=== PATIENT | female | born 1955 | race Caucasian/White ===

== ENCOUNTER 2017-03-30 06:56 | Day surgery (SDC) | payer BC ==
[2017-03-25 13:50] VITALS: BMI 30.7
[2017-03-30] MEDS ORDERED: LIDOCAINE HCL/PF 2% SDV 5ML VIAL ONE (07:03)
[2017-03-30] MEDS ORDERED: PROPOFOL 20 ML ONE ×2 (07:03)
[2017-03-30 09:25] VITALS: TEMP 98
[2017-03-30 10:18] VITALS: BP 120/72; PULSE 100
--- NOTE | 2017-04-01 15:39 | PATH ---
Surgical Pathology Report Patient Name: AYLIN RAE [facility]. Rec. #: [id number] /Age/Gender: 1955 (Age: 62) / F Account: [id number] Location: [facility]OSCOPY Taken: 03/30/2017 Received: 03/30/2017 Reported: 04/01/2017 Physicians: Jesus Marte M.D. Specimen(s) Received A: BX DUODENUM B: BX ANTRUM Clinical History Preoperative diagnosis: Peptic ulcer disease, rule out colon cancer Postoperative diagnosis: Gastritis, abdominal pain, history of lymphoma Final Diagnosis A. DUODENUM, BIOPSY: DUODENAL MUCOSA WITH NO PATHOLOGIC FINDINGS. B. ANTRUM, BIOPSY: MILD CHRONIC GASTRITIS. IMMUNOSTAIN IS NEGATIVE FOR H. PYLORI ORGANISMS. Electronically Signed Tatiana Braun M.D. Gross Description A. Received in formalin, labeled "duodenum" are 3 hyde, irregular portions of soft tissue ranging from 0.2-0.5 cm. in greatest dimension. The specimens are submitted in toto in one cassette. B. Received in formalin, labeled "antrum" are 2 hyde, irregular portions of soft tissue averaging 0.3 cm. in greatest dimension. The specimens are submitted in toto in one cassette. 03/31/2017 saudi03/31/2017
== END 2017-03-30 10:15 | disposition home or self-care (01) ==
LOC: FASU-ENDO 06:56
PROVIDERS: ATTEND Internal Medicine Gastroenterology
PROC: 0DJD8ZZ Inspection of Lower Intestinal Tract, Via Natural or Artificial Opening Endoscopic (ICD-10-PCS; principal; 2017-03-30 08:54)
DX: Z12.11 Encounter for screening for malignant neoplasm of colon (principal)
CPT/HCPCS: 82962

== ENCOUNTER 2018-04-26 13:37 | Emergency (ER) | payer BC ==
--- NOTE | 2018-04-26 13:44 | PDOC ---
History of Present Illness - General Chief Complaint: Nausea Stated Complaint: NAUSEA History Source: Patient Exam Limitations: No Limitations - History of Present Illness Initial Comments: Pt is a 63 yo F, with PMH of HTN, HLD, DM, lymphoma and breast CA (in remission , last tx 2016), and thyroidectomy (benign nodules), who is presenting with complaints of nausea, vomiting, and loose stool. Pt states 3 days ago, she woke in the AM with profuse loose brown stool, nausea, and NBNB vomiting throughout the day. Over the next 2 days, pt no longer had n/v/d, but did have mild sore throat, diffuse body aches, and has had difficulty tolerating PO food and fluid due to nausea. Pt denies any recent fevers/chills, headache, vision changes, syncope, chest pain, palpitations, SOB, abdominal pain, urinary symptoms, diarrhea/constipation, or leg swelling. PCP: Dr. Magdy Anthony/Onc: Dr. Nolasco Social: Pt denies any cigarette, alcohol, or drug use. Pt denies any recent travel. Pt received a flu shot, but works as a PERMIT COORDINATOR with sick contacts. Surgical: stem cell transplant for lymphoma, spinal fusion, thyroidectomy, mastectomy b/l Family: no relevant history. 04/26/18 19:03 Past History - Travel Traveled outside of the country in the last 30 days: No Close contact w/someone who was outside of country & ill: No - Past Medical History Allergies/Adverse Reactions: Allergies Allergy/AdvReac Type Severity Reaction Status Date / Time adhesive Allergy Severe Hives Verified 06/27/13 13:47 ceftriaxone Allergy Severe FEVER, RASH Verified 03/25/17 13:51 tramadol HCl [From Ultram] Allergy Severe VERTIGO & Verified 07/13/14 20:33 PROJECTILE VOMITING povidone-iodine Allergy Intermediate SKIN Verified 06/27/13 13:47 [From Betadine] INFLAMATION soap [From Betadine] Allergy Intermediate SKIN Verified 06/27/13 13:47 INFLAMATION ticarcillin disodium Allergy Intermediate WEALS Verified 07/13/14 20:33 [From Ticar] diazepam [From Valium] AdvReac Severe VISUAL Verified 06/27/13 13:47 HALLUCINATIONS Home Medications: Ambulatory Orders Losartan Potassium 100 mg PO DAILY 06/27/13 Atorvastatin Ca [Lipitor -] 20 mg PO HS 07/13/14 Diphenoxylate HCl/Atrop Sulf [Lomotil Tablet] 1 each PO Q4H PRN 07/13/14 Methocarbamol [Robaxin -] 750 mg PO HS PRN 07/13/14 Oxycodone HCl/Acetaminophen [Percocet 5/325 -] 1 tab PO Q6H PRN 07/13/14 Prochlorperazine Maleate [Compazine] 10 mg PO Q6H PRN 07/13/14 Anastrozole [Arimidex -] 1 mg PO DAILY 03/25/17 Cholecalciferol (Vitamin D3) [Vitamin D] 2,000 unit PO DAILY 03/25/17 Docusate Sodium [Colace] 100 mg PO BID 03/25/17 Insulin Degludec [Tresiba Flextouch U-100] 48 unit SQ HS 03/25/17 Insulin Lispro [Humalog] 10 unit SQ AC 03/25/17 Levothyroxine [Synthroid -] 100 mcg PO DAILY 03/25/17 Magnesium 500 mg PO BID 03/25/17 Omeprazole Magnesium [Prilosec Otc] 40 mg PO DAILY 03/25/17 Potassium Chloride 10 meq PO BID 03/25/17 Pyridoxine HCl [Vitamin B6] 100 mg PO DAILY 03/25/17 Nitrofurantoin Macrocrystal [Macrodantin] 100 mg PO BID 5 Days #10 capsule 04/26 Anemia: No Asthma: No Cancer: Yes (LOGAN BREAST. CHEMOTHERAPY 06/30/14) Cardiac Disorders: No CVA: No COPD: No CHF: No Dementia: No Diabetes: Yes (DX 1994) GI Disorders: Yes (GERD) Disorders: No HTN: Yes Hypercholesterolemia: No (ON PREVENTATIVE MEDS) Liver Disease: No (? LYMPHOMA SPOT NOW GONE) Seizures: No Thyroid Disease: Yes (PARTIAL THYROIDECTOMY AND NODULES) - Surgical History Abdominal Surgery: Yes Appendectomy: Yes (OPEN-2009) Cardiac Surgery: No Cholecystectomy: No Lung Surgery: No Neurologic Surgery: No Orthopedic Surgery: Yes (FUSION L1-S1- 2008, LEFT KNEE ARTHROSCOPY-1989) - Suicide/Smoking/Psychosocial Hx Smoking History: Never smoked Have you smoked in the past 12 months: No Hx Alcohol Use: Yes (RARE - WINE) Drug/Substance Use Hx: No Substance Use Type: Alcohol Hx Substance Use Treatment: No Review of Systems - Review of Systems Able to Perform ROS?: Yes Is the patient limited [place]raltarian proficient: No Constitutional: Yes: Loss of Appetite, Malaise, Weight Stable. No: Chills, Diaphoresis, Fever, Night Sweats, Weakness HEENTM: No: Blurred Vision, Recent change in vision, Double Vision, Nose Congestion, Throat Pain, Throat Swelling, Difficulty Swallowing Respiratory: No: Cough, Shortness of Breath Cardiac (ROS): Yes: Edema (b/l LE, chronic). No: Chest Pain, Lightheadedness, Palpitations, Syncope ABD/GI: Yes: Diarrhea, Nausea, Poor Appetite, Poor Fluid Intake, Vomiting. No: Abdominal Distended, Abd. Pain w/ defecation, Constipated, Rectal Bleeding, Indigestion, Abdominal cramping : No: Burning, Dysuria, Frequency, Hematuria, Pain, Urgency Musculoskeletal: No: Back Pain, Joint Pain, Muscle Pain, Muscle Weakness Integumentary: No: Rash Neurological: No: Headache, Numbness, Weakness, Unsteady Gait, Dizziness Psychiatric: No: Sleep Pattern Change, Emotional Problems, Change in Appetite Endocrine: No: Increased Urine, Change in Weight Hematologic/Lymphatic: No: Anemia, Blood Clots, Easy Bleeding, Easy Bruising All Other Systems: Reviewed and Negative *Physical Exam - Vital Signs 04/26/18 18:52 Vital Signs Temp Pulse Resp BP Pulse Ox 99.9 F H 113 H 20 120/70 99 04/26/18 13:38 04/26/18 13:38 04/26/18 13:38 04/26/18 13:38 04/26/18 13:38 - Physical Exam Comments: 04/26/18 18:52 BP stable, mildly tachycardic, pt afebrile. Pt appears uncomfortable, obese body habitus. PE showed pt alert and oriented. director digital marketing generally intact, muscular strength and sensation intact. Eyes PERRLA, EOMI. Oropharynx without erythema or exudates, no LAD b/l. Dry oral mucosa, decreased skin turgor. No nasal congestion, hearing intact. Clear heart sounds, S1/S2, no JVD, or heart murmur. Mild b/l pitting, pedal edema to ankles (pt states chronic). Clear lung sounds, no respiratory distress, wheezes, crackles, or accessory muscle use. R subclavian port intact, no erythema or drainage. No abdominal or CVA tenderness to palpation, no rebound, no guarding. Abdomen soft, non-distended, and with normoactive bowel sounds. Skin without jaundice or rash. ED Treatment Course - LABORATORY CBC & Chemistry Diagram: 04/26/18 15:39 04/26/18 15:39 Medical Decision Making - Medical Decision Making Pt was seen at bedside, also will be seen by attending Dr. Eugene. Pt presenting with complaints of nausea, vomiting, and loose stool. Pt states 3 days ago, she woke in the AM with profuse loose brown stool, nausea, and NBNB vomiting throughout the day. Over the next 2 days, pt no longer had n/v/d, but did have mild sore throat, diffuse body aches, and has had difficulty tolerating PO food and fluid due to nausea. Pt denies any recent fevers/chills, headache, vision changes, syncope, chest pain, palpitations, SOB, abdominal pain , urinary symptoms, diarrhea/constipation, or leg swelling. BP stable, mildly tachycardic, pt afebrile. Pt appears uncomfortable, obese body habitus. PE showed pt alert and oriented. director digital marketing generally intact, muscular strength and sensation intact. Eyes PERRLA, EOMI. Oropharynx without erythema or exudates, no LAD b/l. Dry oral mucosa, decreased skin turgor. No nasal congestion, hearing intact. Clear heart sounds, S1/S2, no JVD, or heart murmur. Mild b/l pitting, pedal edema to ankles (pt states chronic). Clear lung sounds, no respiratory distress, wheezes, crackles, or accessory muscle use. No abdominal or CVA tenderness to palpation, no rebound, no guarding. Abdomen soft , non-distended, and with normoactive bowel sounds. Skin without jaundice or rash. Likely viral syndrome/influenza vs gastroenteritis. No abdominal tenderness ( less likely appendicitis vs colitis/diverticulitis), pt had a recent colonoscopy with no findings. Ordered work-up including CBC, CMP, UA, urine culture, rapid influenza. Provided 1 g ofirmev, 4 mg IV zofran, and 1 L IV NS for improvement of dehydration. Will continue to reassess pt and monitor for symptomatic improvement. Pt was very difficult for IV access, pt prefers us to access R subclavian port. Will access port for IVF and labs. 04/26/18 15:28 CBC generally WNL, hemoglobin 10.6 (last was taken in 2014, no bleeding source) CMP: Na 133, K 3.3 -- likely 2/2 n/v/d UA: trace leuk esterase, +RBC, +WBC -- will treat with Macrobid, sent to pt pharmacy. Pending influenza swab, as pt is a good candidate for Tamiflu Pt states she is feeling much better after IVFs and tylenol. Pt has been able to ambulate to the bathroom. Tachycardia and BP improved after fluids. Pt can be discharged to home with follow-up. Pt advised to follow-up with PCP in 1-2 days. Strict return precautions provided with pt understanding. 04/26/18 16:59 Influenza negative, will not send tamiflu. 04/26/18 18:50 *DC/Admit/Observation/Transfer Diagnosis at time of Disposition: Viral syndrome Urinary tract infection Qualifiers: Urinary tract infection type: site unspecified Hematuria presence: with hematuria Qualified Code(s): N39.0 - Urinary tract infection, site not specified - Discharge Dispostion Disposition: HOME Condition at time of disposition: Improved Decision to Admit order: No - Prescriptions Prescriptions: Nitrofurantoin Macrocrystal [Macrodantin] 100 mg PO BID 5 Days #10 capsule - Referrals Referrals: Bonny Curran MD [Non Staff, Medical] - - Patient Instructions Printed Discharge Instructions: DI for Urinary Tract Infection (UTI), DI for Viral Syndrome Additional Instructions: You were seen in the ER today for nausea, vomiting, and diarrhea. The results of your labs and imaging today showed a mild urinary tract infection. We will call you if your influenza test is positive. Please follow-up with your primary care doctor within 1-2 days to discuss your visit and make sure your symptoms have improved. Please return to the ER if you have any worsening pain, development of fevers or chills that does not improve with food or fluid, loss of consciousness, inability to tolerate food or fluids, or any other concerns. I have sent antibiotics to your pharmacy for your urine infection. Please take this medicine as prescribed. - Post Discharge Activity
[2018-04-26 13:57] VITALS: BP 120/70; PULSE 113; TEMP 99.9; BMI 32.5
[2018-04-26] MEDS ORDERED: ONDANSETRON 4 MG/2 ML VIAL IVPUSH ONE (14:02)
[2018-04-26] MEDS ORDERED: SODIUM CHLORIDE 1,000 ML IV STA (14:02)
[2018-04-26] MEDS ORDERED: ACETAMINOPHEN 1000 MG/100 ML VIAL (NON FORMULARY) IVPB ONE (14:02)
[2018-04-26] MEDS ORDERED: ACETAMINOPHEN INJECTION 100 ML IVPB ONE (15:06)
[2018-04-26] MEDS ORDERED: ONDANSETRON 4 MG/2 ML VIAL ONE (15:06)
--- NOTE | 2018-04-26 15:07 | PDOC ---
Attending Attestation - Resident Resident Name: Jennifer Castrejon - ED Attending Attestation I have performed the following: I have examined & evaluated the patient, The case was reviewed & discussed with the resident, I agree w/resident's findings & plan, Exceptions are as noted
[2018-04-26 16:03] LABS: BASO % 0.1 % (0-2.0); EOS % 0.3 % (0-4.5); HEMATOCRIT 32.9 % (32.4-45.2); HEMOGLOBIN 10.6 GM/dl (10.7-15.3); LYMPH % 7.4 % (8-40); MCH 28.7 pg (25.7-33.7); MCHC 32.2 g/dl (32.0-36.0); MEAN CELL VOLUME 89.1 fl (80-96); MEAN PLT VOLUME 8.5 fl (7.5-11.1); MONO % 9.3 % (3.8-10.2); NEUT % 82.9 % (42.8-82.8); PLATELET COUNT 126 K/MM3 (134-434); RBC 3.69 M/mm3 (3.60-5.2); RDW 15.9 % (11.6-15.6); WHITE BLOOD COUNT 8.5 K/mm3 (4.0-10.8)
[2018-04-26 16:16] LABS: ALK PHOS 68 U/L (45-117); ANION GAP 8 MMOL/L (8-16); BILIRUBIN,TOTAL 0.7 mg/dl (0.2-1); BLOOD UREA NITROGEN 17 mg/dl (7-18); CALCIUM 7.8 mg/dl (8.5-10); CHLORIDE 101 mmol/L (98-107); CO2 24 mmol/L (21-32); CREATININE 0.7 mg/dl (0.55-1.3); GLUCOSE,RANDOM 114 mg/dl (74-106); POTASSIUM 3.3 mmol/L (3.5-5.1); SGOT/AST 16 U/L (15-37); SGPT/ALT 15 U/L (13-61); SODIUM 133 mmol/L (136-145); TOT PROT 5.3 g/dl (6.4-8.2)
[2018-04-26 16:26] LABS: PH,URINE 5.5 (4.5-8); URINE APPEARANCE SL CLOUDY; URINE BILIRUBIN 1+ (NEGATIVE); URINE COLOR YELLOW; URINE GLUCOSE (UA) NEGATIVE (NEGATIVE); URINE KETONE NEGATIVE (NEGATIVE); URINE NITRITE NEGATIVE (NEGATIVE); URINE PROTEIN 2+ (NEGATIVE); URINE UROBILINOGEN 0.2 (0.2-1.0)
[2018-04-26 16:27] LABS: URINE LEUK ESTERASE TRACE (NEGATIVE)
[2018-04-26 16:39] LABS: EPI CELLS 1+ /HPF; URINE BACTERIA 1+ /hpf (NEGATIVE)
== END 2018-04-26 17:43 | disposition home or self-care (01) ==
LOC: FER 13:37
PROC: 3E033NZ Introduction of Analgesics, Hypnotics, Sedatives into Peripheral Vein, Percutaneous Approach (ICD-10-PCS; principal; 2018-04-26)
PROC: 3E033GC Introduction of Other Therapeutic Substance into Peripheral Vein, Percutaneous Approach (ICD-10-PCS; 2018-04-26)
PROC: 3E0337Z Introduction of Electrolytic and Water Balance Substance into Peripheral Vein, Percutaneous Approach (ICD-10-PCS; 2018-04-26)
DX: B34.9 Viral infection, unspecified (principal); I10 Essential (primary) hypertension; E11.9 Type 2 diabetes mellitus without complications; K21.9 Gastro-esophageal reflux disease without esophagitis; E07.9 Disorder of thyroid, unspecified
CPT/HCPCS: 36415; 80053; 81003; 81015; 85025; 87086; 87186; 87804; 99282-25; J0131; J7030

== ENCOUNTER 2018-04-29 22:57 | Inpatient (IN) | payer BC ==
--- NOTE | 2018-04-29 23:07 | PDOC ---
History of Present Illness - History of Present Illness Initial Comments: The patient is a 63 year old female, with a significant PMH of DM, HTN, hypothyroid, GERD, thyroidectomy (benign nodules), lymphoma, and breast cancer ( in remission, last treatment was in 2017), who presents to the emergency department today complaining of unresolved flu symptoms for 4 days. Patient was seen in the ED 4 days ago for a persistent cough, and was treated for dehydration. She notes that the cough has gotten progressively worse, prompting her to go to [facility] 2 days ago. Patient reports that she was tested positive for the flu, but was not given anything because 2 days had already passed. Patient reports a fever, measured at a 102.2 max one hour prior to arrival. Patient notes she took Tylenol without relief for her fever. She also complains of SOB and left rib pain. The patient denies chest pain, headache and dizziness. Denies nausea, vomit, diarrhea and constipation. Denies dysuria, frequency, urgency and hematuria. PAST MEDICAL HISTORY: DM, HTN, hypothyroid, GERD, lymphoma, and breast cancer ( in remission, last treatment was in 2016) PAST SURGICAL HISTORY: Appendectomy, stem cell transplant for lymphoma, bilateral mastectomy, thyroidectomy, spinal fusion, and left knee arthroscopy FAMILY HISTORY: no pertinent history SOCIAL HISTORY: Pt lives with family and is employed. MEDICATIONS: reviewed ALLERGIES: Adhesive, Ceftriaxone, Tramadol HCl, Povidone-iodine, soap, Ticarcillin disodium, and DIazepam. PCP: Dr. Bonny Curran Heme/Oncologist: Dr. Nolasco Adult ROS General: +102.2 max fever. No chills, no weakness, no weight loss HEENT: No change in vision. No sore throat,. No ear pain CardioVascular: +SOB. No chest pain. Respiratory: +Persistent cough. No wheezing. Gastrointestinal: no nausea, vomiting, diarrhea or constipation, No rectal bleeding Genitourinary: No dysuria, hematuria, or frequency Musculoskeletal: +Left rib pain. No joint or muscle swelling Neurologic: No headache, vertigo, dizziness or loss of consciousness Psychiatric: nor depression Skin: No rashes or easy bruising Endocrine: no increased thirst or abnormal weight change Allergic: no skin or latex allergy All other systems reviewed and normal Adult Exam: General: +Chronically ill appearance. No acute distress HEENT: Throat: Normal, tonsils normal, no erythema or exudate Neck: Supple, no meningeal signs, no lymphadenopathy Eyes:Pupils equal reactive and round, extraocular motion intact Chest: Nontender to palpation Cardiac: +Mild tachycardia. S1-S2 normal, regular rhythm, no murmurs rubs or gallops Respiratory: +Decreased breath sounds at bilateral bases with some rhonchi at the left base. Abdomen: Soft, nondistended, normal bowel sounds, nontender to palpation diffusely Extremities: Warm, dry, no cyanosis, clubbing, or edema Skin: No rashes Neuro: Alert and oriented x3, nonfocal exam, grossly intact, normal gait Psych: Normal mood and affect 04/29/18 23:56 <Kristie Fuentes - Last Filed: 04/29/18 23:59> - General History Source: Patient Exam Limitations: No Limitations <Any Lai I - Last Filed: 04/30/18 02:12> - General Chief Complaint: Respiratory Stated Complaint: FEVER/COUGH/FLU Time Seen by Provider: 04/29/18 23:07 Past History <Kristie Fuentes - Last Filed: 04/29/18 23:59> - Past Medical History Anemia: No Asthma: No Cancer: Yes (LOGAN BREAST. CHEMOTHERAPY 06/30/14) Cardiac Disorders: No CVA: No COPD: No CHF: No Dementia: No Diabetes: Yes (DX 1994) GI Disorders: Yes (GERD) Disorders: No HTN: Yes Hypercholesterolemia: No (ON PREVENTATIVE MEDS) Liver Disease: No (? LYMPHOMA SPOT NOW GONE) Seizures: No Thyroid Disease: Yes (PARTIAL THYROIDECTOMY AND NODULES) - Surgical History Abdominal Surgery: Yes Appendectomy: Yes (OPEN-2009) Cardiac Surgery: No Cholecystectomy: No Lung Surgery: No Neurologic Surgery: No Orthopedic Surgery: Yes (FUSION L1-S1- 2008, LEFT KNEE ARTHROSCOPY-1989) - Suicide/Smoking/Psychosocial Hx Smoking History: Never smoked Have you smoked in the past 12 months: No Hx Alcohol Use: Yes (RARE - WINE) Drug/Substance Use Hx: No Substance Use Type: Alcohol Hx Substance Use Treatment: No <Any Lai I - Last Filed: 04/30/18 02:12> - Past Medical History Allergies/Adverse Reactions: Allergies Allergy/AdvReac Type Severity Reaction Status Date / Time adhesive Allergy Severe Hives Verified 06/27/13 13:47 ceftriaxone Allergy Severe FEVER, RASH Verified 03/25/17 13:51 tramadol HCl [From Ultram] Allergy Severe VERTIGO & Verified 07/13/14 20:33 PROJECTILE VOMITING povidone-iodine Allergy Intermediate SKIN Verified 06/27/13 13:47 [From Betadine] INFLAMATION soap [From Betadine] Allergy Intermediate SKIN Verified 06/27/13 13:47 INFLAMATION ticarcillin disodium Allergy Intermediate WEALS Verified 07/13/14 20:33 [From Ticar] diazepam [From Valium] AdvReac Severe VISUAL Verified 06/27/13 13:47 HALLUCINATIONS Home Medications: Ambulatory Orders Losartan Potassium 100 mg PO DAILY 06/27/13 Atorvastatin Ca [Lipitor -] 20 mg PO HS 07/13/14 Diphenoxylate HCl/Atrop Sulf [Lomotil Tablet] 1 each PO Q4H PRN 07/13/14 Methocarbamol [Robaxin -] 750 mg PO HS PRN 07/13/14 Oxycodone HCl/Acetaminophen [Percocet 5/325 -] 1 tab PO Q6H PRN 07/13/14 Prochlorperazine Maleate [Compazine] 10 mg PO Q6H PRN 07/13/14 Anastrozole [Arimidex -] 1 mg PO DAILY 03/25/17 Cholecalciferol (Vitamin D3) [Vitamin D] 2,000 unit PO DAILY 03/25/17 Docusate Sodium [Colace] 100 mg PO BID 03/25/17 Insulin Degludec [Tresiba Flextouch U-100] 48 unit SQ HS 03/25/17 Insulin Lispro [Humalog] 0 unit SQ ASDIR 03/25/17 Levothyroxine [Synthroid -] 100 mcg PO DAILY 03/25/17 Magnesium 500 mg PO BID 03/25/17 Omeprazole Magnesium [Prilosec Otc] 40 mg PO DAILY 03/25/17 Potassium Chloride 10 meq PO BID 03/25/17 Pyridoxine HCl [Vitamin B6] 100 mg PO DAILY 03/25/17 *Physical Exam - Vital Signs Last Vital Signs Temp Pulse Resp BP Pulse Ox 100.5 F H 111 H 16 123/73 93 L 04/29/18 23:00 04/29/18 23:00 04/29/18 23:00 04/29/18 23:00 04/29/18 23:00 <Kristie Fuentes - Last Filed: 04/29/18 23:59> - Vital Signs Last Vital Signs Temp Pulse Resp BP Pulse Ox 100.5 F H 111 H 16 123/73 93 L 04/29/18 23:00 04/29/18 23:00 04/29/18 23:00 04/29/18 23:00 04/29/18 23:00 <Any Lai I - Last Filed: 04/30/18 02:12> Moderate Sedation - Procedure Monitoring Vital Signs: Procedure Monitoring Vital Signs Temperature 100.5 F H 04/29/18 23:00 Pulse Rate 111 H 04/29/18 23:00 Respiratory Rate 16 04/29/18 23:00 Blood Pressure 123/73 04/29/18 23:00 O2 Sat by Pulse Oximetry (%) 93 L 04/29/18 23:00 <Kristie Fuentes - Last Filed: 04/29/18 23:59> - Procedure Monitoring Vital Signs: Procedure Monitoring Vital Signs Temperature 100.5 F H 04/29/18 23:00 Pulse Rate 111 H 04/29/18 23:00 Respiratory Rate 16 04/29/18 23:00 Blood Pressure 123/73 04/29/18 23:00 O2 Sat by Pulse Oximetry (%) 93 L 04/29/18 23:00 <Any Lai I - Last Filed: 04/30/18 02:12> Heart Score/ECG Review - ECG Intrepretation Rhythm: Regular Rhythm Comment:: Normal sinus rhythm. Right bundle branch block. Abnormal ECG. 04/29/18 23:59 <Kristie Fuentes - Last Filed: 04/29/18 23:59> ED Treatment Course - LABORATORY CBC & Chemistry Diagram: 04/30/18 00:00 04/30/18 00:00 <Any Lai I - Last Filed: 04/30/18 02:12> *DC/Admit/Observation/Transfer - Attestations Scribe Attestion: Documentation prepared by OVI Martin, acting as medical device sales for Any Lai MD. 04/29/18 23:57 <Kristie Fuentes - Last Filed: 04/29/18 23:59> - Discharge Dispostion Decision to Admit order: Yes <Any Lai I - Last Filed: 04/30/18 02:12> Diagnosis at time of Disposition: Pneumonia Qualifiers: Pneumonia type: due to unspecified organism Lung location: lower lobe of lung - Discharge Dispostion Condition at time of disposition: Stable - Referrals Referrals: Bonny Curran MD [Primary Care Provider] - - Patient Instructions - Post Discharge Activity
[2018-04-29] MEDS ORDERED: SODIUM CHLORIDE 1,000 ML IV ONE (23:19)
[2018-04-30 00:54] LABS: BASO % 0.1 % (0-2.0); EOS % 0.1 % (0-4.5); HEMATOCRIT 30.3 % (32.4-45.2); HEMOGLOBIN 10.8 GM/dL (10.7-15.3); MCH 31.1 pg (25.7-33.7); MCHC 35.6 g/dl (32.0-36.0); MEAN CELL VOLUME 87.5 fl (80-96); MEAN PLT VOLUME 8.6 fl (7.5-11.1); MONO % 12.9 % (3.8-10.2); NEUT % 77.9 % (42.8-82.8); PLATELET COUNT 106 K/MM3 (134-434); RBC 3.46 M/mm3 (3.60-5.2); RDW 16.4 % (11.6-15.6); WHITE BLOOD COUNT 7.1 K/mm3 (4.0-10.0)
[2018-04-30 01:25] LABS: INR 1.28 (0.83-1.09); PROTHROMBIN TIME (PATIENT) 15.2 SEC (9.7-13.0)
[2018-04-30 01:27] LABS: ACTIVATED PTT 36.7 SECONDS (25.2-36.5)
[2018-04-30 01:30] LABS: ALBUMIN 2.8 g/dl (3.4-5.0); ALK PHOS 73 U/L (45-117); ANION GAP 7 MMOL/L (8-16); BILIRUBIN,TOTAL 0.5 mg/dL (0.2-1); BLOOD UREA NITROGEN 13 mg/dL (7-18); CALCIUM 7.9 mg/dL (8.5-10.1); CHLORIDE 98 mmol/L (98-107); CO2 28 mmol/L (21-32); CREATININE 0.9 mg/dL (0.55-1.3); GLUCOSE,RANDOM 130 mg/dL (74-106); POTASSIUM 3.1 mmol/L (3.5-5.1); SGOT/AST 21 U/L (15-37); SGPT/ALT 18 U/L (13-61); SODIUM 133 mmol/L (136-145); TOT PROT 5.9 g/dl (6.4-8.2)
[2018-04-30 01:44] LABS: VENOUS PC02 38.8 mmHg (38-52); VENOUS PH 7.48 (7.32-7.42)
[2018-04-30] MEDS ORDERED: ONDANSETRON 4 MG/2 ML VIAL ONE (02:02)
[2018-04-30] MEDS ORDERED: METOCLOPRAMIDE HCL INJECTION 10 MG/2 ML VIAL IVPUSH ONE (02:15)
[2018-04-30] MEDS ORDERED: PROCHLORPERAZINE INJECTION 10 MG/2 ML VIAL IVPB ONE (02:16)
[2018-04-30] MEDS ORDERED: PROCHLORPERAZINE INJECTION 10 MG/2 ML VIAL ONE (02:18)
[2018-04-30] MEDS ORDERED: POTASSIUM CHLORIDE TABS 20 MEQ TABLET.ER (FP) PO ONE ×3 (02:26→08:45)
[2018-04-30] MEDS ORDERED: OSELTAMIVIR PHOSPHATE 75 MG CAPSULE PO ONE (02:51)
[2018-04-30] MEDS ORDERED: ALBUTEROL SO4 2.5/IPRATROPIUM 0.5 INH SOL 3 ML VIAL.NEB. NEB PRN (02:54)
[2018-04-30 02:58] LABS: URINE APPEARANCE CLEAR; URINE BILIRUBIN NEGATIVE (<2.0 mg/dL); URINE COLOR LTYELLOW; URINE GLUCOSE (UA) NEGATIVE (NEGATIVE); URINE KETONE NEGATIVE (NEGATIVE); URINE LEUK ESTERASE NEGATIVE (NEGATIVE); URINE NITRITE NEGATIVE (NEGATIVE); URINE PROTEIN NEGATIVE (NEGATIVE); URINE UROBILINOGEN NEGATIVE mg/dL (0.2-1.0)
[2018-04-30 03:12] LABS: URINE BACTERIA MANY /hpf (NONE SEEN)
[2018-04-30 04:27] VITALS: BMI 31.9
[2018-04-30] MEDS ORDERED: LEVOTHYROXINE NA 100 MCG TABLET (FP) PO SCH (07:00)
--- NOTE | 2018-04-30 08:13 | HP ---
CHIEF COMPLAINT: Fever, cough PCP: Dr. Sheryl Curran HISTORY OF PRESENT ILLNESS: 63 year-old female with a PMH significant for HTN, HLD, IDDM, lymphoma in remission, breast cancer, hypothyroidism, and GERD. 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 About 5 days ago patient experienced nausea, vomiting, and diarrhea x 24 hours. Two days later she developed a cough. She was seen at [place] ED and was flu swab negative. The cough worsened and patient went to an urgent care 2 days later and tested flu positive. She was not started on any medications. Patient re-presented to the [place] ED yesterday with fever recorded at home of 102 and a persistent, productive cough. ER course was notable for: (1) T100.5, p111 (2) Flu swab negative (3) CXR: no acute process Recent Travel: No PAST MEDICAL HISTORY: Hypertension Hyperlipidemia IDDM Lymphoma s/p stem cell transplant 2016 Breast cancer 2015 Hypothyroidism GERD PAST SURGICAL HISTORY: Stem call transplant Spinal fusion Thyroidectomy Bilateral mastectomy Appendectomy Social History: Smoking: no Alcohol: rare Drugs: no Family History: Allergies adhesive Allergy (Severe, Verified 06/27/13 13:47) Hives ceftriaxone Allergy (Severe, Verified 03/25/17 13:51) FEVER, RASH tramadol HCl [From Ultram] Allergy (Severe, Verified 07/13/14 20:33) VERTIGO & PROJECTILE VOMITING povidone-iodine [From Betadine] Allergy (Intermediate, Verified 06/27/13 13:47) SKIN INFLAMATION soap [From Betadine] Allergy (Intermediate, Verified 06/27/13 13:47) SKIN INFLAMATION ticarcillin disodium [From Ticar] Allergy (Intermediate, Verified 07/13/14 20:33 ) WEALS diazepam [From Valium] Adverse Reaction (Severe, Verified 06/27/13 13:47) VISUAL HALLUCINATIONS HOME MEDICATIONS: Home Medications Medication Instructions Recorded Losartan Potassium 100 mg PO DAILY 06/27/13 Atorvastatin Ca [Lipitor -] 20 mg PO HS 07/13/14 Diphenoxylate HCl/Atrop Sulf 1 each PO Q4H PRN 07/13/14 [Lomotil Tablet] Methocarbamol [Robaxin -] 750 mg PO HS PRN 07/13/14 Oxycodone HCl/Acetaminophen 1 tab PO Q6H PRN 07/13/14 [Percocet 5/325 -] Prochlorperazine Maleate 10 mg PO Q6H PRN 07/13/14 [Compazine] Anastrozole [Arimidex -] 1 mg PO DAILY 03/25/17 Cholecalciferol (Vitamin D3) 2,000 unit PO DAILY 03/25/17 [Vitamin D] Docusate Sodium [Colace] 100 mg PO BID 03/25/17 Insulin Degludec [Tresiba 48 unit SQ HS 03/25/17 Flextouch U-100] Insulin Lispro [Humalog] 0 unit SQ ASDIR 03/25/17 Levothyroxine [Synthroid -] 100 mcg PO DAILY 03/25/17 Magnesium 500 mg PO BID 03/25/17 Omeprazole Magnesium [Prilosec Otc] 40 mg PO DAILY 03/25/17 Potassium Chloride 10 meq PO BID 03/25/17 Pyridoxine HCl [Vitamin B6] 100 mg PO DAILY 03/25/17 REVIEW OF SYSTEMS CONSTITUTIONAL: Absent: fever, chills, diaphoresis, generalized weakness, malaise, loss of appetite, weight change HEENT: Absent: rhinorrhea, nasal congestion, throat pain, throat swelling, difficulty swallowing, mouth swelling, ear pain, eye pain, visual changes CARDIOVASCULAR: Absent: chest pain, syncope, palpitations, irregular heart rate, lightheadedness , peripheral edema RESPIRATORY: +cough, fever Absent: cough, shortness of breath, dyspnea with exertion, orthopnea, wheezing, stridor, hemoptysis GASTROINTESTINAL: +diarrhea Absent: abdominal pain, abdominal distension, nausea, vomiting, diarrhea, constipation, melena, hematochezia GENITOURINARY: Absent: dysuria, frequency, urgency, hesitancy, hematuria, flank pain, genital pain MUSCULOSKELETAL: Absent: myalgia, arthralgia, joint swelling, back pain, neck pain SKIN: Absent: rash, itching, pallor HEMATOLOGIC/IMMUNOLOGIC: Absent: easy bleeding, easy bruising, lymphadenopathy, frequent infections ENDOCRINE: Absent: unexplained weight gain, unexplained weight loss, heat intolerance, cold intolerance NEUROLOGIC: Absent: headache, focal weakness or paresthesias, dizziness, unsteady gait, seizure, mental status changes, bladder or bowel incontinence PSYCHIATRIC: Absent: anxiety, depression, suicidal or homicidal ideation, hallucinations. PHYSICAL EXAMINATION Vital Signs - 24 hr 04/29/18 04/30/18 04/30/18 23:00 00:15 01:57 Temperature 100.5 F H 99.3 F Pulse Rate 111 H 95 H Pulse Rate [ 95 H 98 H Apical] Respiratory 16 18 20 Rate Blood Pressure 123/73 Blood Pressure 114/71 115/66 [Left Arm] O2 Sat by Pulse 93 L 97 94 L Oximetry (%) 04/30/18 04/30/18 04/30/18 02:30 04:15 07:13 Temperature 99.9 F H 100.4 F H Pulse Rate 93 H 109 H Pulse Rate [ 95 H Apical] Respiratory 16 19 19 Rate Blood Pressure 123/54 L 137/65 Blood Pressure [Left Arm] O2 Sat by Pulse 98 97 99 Oximetry (%) GENERAL: Awake, alert, and fully oriented; right upper chest port HEAD: Normal with no signs of trauma. EYES: Pupils equal, round and reactive to light, extraocular movements intact, sclera anicteric, conjunctiva clear. No lid lag. EARS, NOSE, THROAT: Ears normal, nares patent, oropharynx clear without exudates. Moist mucous membranes. LUNGS: Poor air movement, diffuse rhonchi, expiratory wheezing. Mildly dyspneic with speaking. HEART: Regular rate and rhythm, S1 and S2 ABDOMEN: Soft, nontender, not distended UPPER EXTREMITIES: 2+ pulses, warm, well-perfused. No cyanosis. No clubbing. No peripheral edema. LOWER EXTREMITIES: 2+ pulses, warm, well-perfused. No calf tenderness. No peripheral edema. NEUROLOGICAL: Cranial nerves II-XII intact. Normal speech. Laboratory Results - last 24 hr 04/30/18 04/30/18 04/30/18 00:00 00:00 00:00 WBC 7.1 RBC 3.46 L Hgb 10.8 Hct 30.3 L MCV 87.5 MCH 31.1 MCHC 35.6 RDW 16.4 H Plt Count 106 L MPV 8.6 Absolute Neuts (auto) 5.6 Neutrophils % 77.9 Lymphocytes % 9.0 Monocytes % 12.9 H Eosinophils % 0.1 Basophils % 0.1 Nucleated RBC % 0 PT with INR 15.20 H INR 1.28 H PTT (Actin FS) 36.7 H VBG pH 7.48 H POC VBG pCO2 38.8 POC VBG pO2 35.0 Mixed VBG HCO3 28.3 H Sodium Potassium Chloride Carbon Dioxide Anion Gap BUN Creatinine Creat Clearance w eGFR Random Glucose Lactic Acid Calcium Total Bilirubin AST ALT Alkaline Phosphatase Total Protein Albumin Urine Color Urine Appearance Urine pH Ur Specific [place] Urine Protein Urine Glucose (UA) Urine Ketones Urine Blood Urine Nitrite Urine Bilirubin Urine Urobilinogen Ur Leukocyte Esterase Urine WBC (Auto) Urine RBC (Auto) Urine Bacteria 04/30/18 04/30/18 04/30/18 00:00 00:00 01:00 WBC RBC Hgb Hct MCV MCH MCHC RDW Plt Count MPV Absolute Neuts (auto) Neutrophils % Lymphocytes % Monocytes % Eosinophils % Basophils % Nucleated RBC % PT with INR INR PTT (Actin FS) VBG pH POC VBG pCO2 POC VBG pO2 Mixed VBG HCO3 Sodium 133 L Potassium 3.1 L Chloride 98 Carbon Dioxide 28 Anion Gap 7 L BUN 13 Creatinine 0.9 Creat Clearance w eGFR > 60 Random Glucose 130 H Lactic Acid 0.7 Calcium 7.9 L Total Bilirubin 0.5 AST 21 ALT 18 Alkaline Phosphatase 73 Total Protein 5.9 L Albumin 2.8 L Urine Color Ltyellow Urine Appearance Clear Urine pH 6.0 Ur Specific [place] 1.006 L Urine Protein Negative Urine Glucose (UA) Negative Urine Ketones Negative Urine Blood 1+ H Urine Nitrite Negative Urine Bilirubin Negative Urine Urobilinogen Negative Ur Leukocyte Esterase Negative Urine WBC (Auto) 2 Urine RBC (Auto) <1 Urine Bacteria Many ASSESSMENT/PLAN 63 year-old female with a PMH significant for HTN, HLD, IDDM, lymphoma in remission, breast cancer, hypothyroidism, and GERD. Admitted for influenza. 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[employer], multiple sick contacts, immunocompromised s/p stem cell transplant, on anastrozole --flu swab testing at urgent care was positive for influenza --febrile, persistent cough --start meropenem, continue Tamiflu --IV fluids --if no improvement, will get CT chest --ID following Hypertension --BP stable --not on anti-hypertensives Hyperlipidemia --continue Lipitor IDDM --takes Levemir in morning Lymphoma --in remission Breast cancer --continue anastrozole Hypothyroidism --continue levothyroxine, takes in evening GERD Hypokalemia --repleted in ED FEN Fluids: NS@75mL/hr Electrolytes: replete as indicated Nutrition: low sodium, diabetic Visit type - Emergency Visit Emergency Visit: Yes ED Registration Date: 04/30/18 Care time: The patient presented to the Emergency Department on the above date and was hospitalized for further evaluation of their emergent condition. - New Patient This patient is new to me today: Yes Date on this admission: 04/30/18 - Critical Care Critical Care patient: No
[2018-04-30] MEDS: SODIUM CHLORIDE 1,000 ML IV SCH (09:40)
[2018-04-30] MEDS: ANASTROZOLE 1 MG TABLET PO SCH (09:40)
[2018-04-30] MEDS ORDERED: METHOCARBAMOL 750 MG TABLET PO PRN (12:38)
[2018-04-30] MEDS ORDERED: ANASTROZOLE 1 MG TABLET PO SCH (12:45)
--- NOTE | 2018-04-30 13:33 | CON.ID ---
Consult Consult Specialty:: infectious diseases Referred by:: hospitalist Reason for Consultation:: fever,influenza,weakness - History of Present Illness Chief Complaint: fever,weakness History of Present Illness: 63 year-old female with a PMH significant for HTN, HLD, IDDM, lymphoma in remission, breast cancer, hypothyroidism, and GERD. 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 About 5 days ago patient experienced nausea, vomiting, and diarrhea x 24 hours. Two days later she developed a cough. She was seen at [place] [facility] and was flu swab negative. The cough worsened and patient went to an urgent care 2 days later and tested flu positive. She was not started on any medications. Patient re-presented to the [place] ED yesterday with fever recorded at home of 102 and a persistent, productive cough. currently patient continues to have fever and feels weak - History Source History Provided By: Patient Limitations to Obtaining History: No Limitations - Past Medical History ...: No - Alcohol/Substance Use Hx Alcohol Use: Yes (RARE - WINE) - Smoking History Smoking history: Never smoked Have you smoked in the past 12 months: No Home Medications - Allergies Allergies/Adverse Reactions: Allergies Allergy/AdvReac Type Severity Reaction Status Date / Time adhesive Allergy Severe Hives Verified 06/27/13 13:47 ceftriaxone Allergy Severe FEVER, RASH Verified 03/25/17 13:51 tramadol HCl [From Ultram] Allergy Severe VERTIGO & Verified 07/13/14 20:33 PROJECTILE VOMITING povidone-iodine Allergy Intermediate SKIN Verified 06/27/13 13:47 [From Betadine] INFLAMATION soap [From Betadine] Allergy Intermediate SKIN Verified 06/27/13 13:47 INFLAMATION ticarcillin disodium Allergy Intermediate WEALS Verified 07/13/14 20:33 [From Ticar] diazepam [From Valium] AdvReac Severe VISUAL Verified 06/27/13 13:47 HALLUCINATIONS - Home Medications Home Medications: Ambulatory Orders Losartan Potassium 100 mg PO DAILY 06/27/13 Atorvastatin Ca [Lipitor -] 20 mg PO HS 07/13/14 Diphenoxylate HCl/Atrop Sulf [Lomotil Tablet] 1 each PO Q4H PRN 07/13/14 Methocarbamol [Robaxin -] 750 mg PO HS PRN 05/07/15 Oxycodone HCl/Acetaminophen [Percocet 5/325 -] 1 tab PO Q6H PRN 07/13/14 Prochlorperazine Maleate [Compazine] 10 mg PO Q6H PRN 07/13/14 Anastrozole [Arimidex -] 1 mg PO DAILY 03/25/17 Cholecalciferol (Vitamin D3) [Vitamin D] 2,000 unit PO DAILY 03/25/17 Docusate Sodium [Colace] 100 mg PO BID 03/25/17 Insulin Degludec [Tresiba Flextouch U-100] 48 unit SQ HS 03/25/17 Insulin Lispro [Humalog] 0 unit SQ ASDIR 03/25/17 Levothyroxine [Synthroid -] 100 mcg PO DAILY 03/25/17 Magnesium 500 mg PO BID 03/25/17 Omeprazole Magnesium [Prilosec Otc] 40 mg PO DAILY 03/25/17 Potassium Chloride 10 meq PO BID 03/25/17 Pyridoxine HCl [Vitamin B6] 100 mg PO DAILY 03/25/17 Review of Systems - Review of Systems Constitutional: reports: Fever, Weakness Eyes: reports: No Symptoms HENT: reports: No Symptoms Neck: reports: No Symptoms Cardiovascular: reports: No Symptoms Respiratory: reports: Cough, Wheezing Gastrointestinal: reports: Diarrhea Genitourinary: reports: No Symptoms Musculoskeletal: reports: No Symptoms Integumentary: reports: No Symptoms Neurological: reports: No Symptoms Endocrine: reports: No Symptoms Hematology/Lymphatic: reports: No Symptoms Psychiatric: reports: No Symptoms Physical Exam Vital Signs: Vital Signs Temperature 100.4 F H 04/30/18 07:13 Pulse Rate 109 H 04/30/18 07:13 Respiratory Rate 19 04/30/18 07:13 Blood Pressure 137/65 04/30/18 07:13 O2 Sat by Pulse Oximetry (%) 99 04/30/18 07:13 Constitutional: Yes: Well Nourished, Calm, Mild Distress Eyes: Yes: Conjunctiva Clear HENT: Yes: Atraumatic, Normocephalic Neck: Yes: Supple, Trachea Midline Cardiovascular: Yes: Regular Rate and Rhythm Respiratory: Yes: On Nasal O2, Poor Air Entry (at both bases), Wheezes Gastrointestinal: Yes: Normal Bowel Sounds, Soft Musculoskeletal: Yes: WNL Extremities: Yes: WNL Neurological: Yes: Alert, Oriented Psychiatric: Yes: Alert, Oriented Labs: CBC, BMP 04/30/18 00:00 04/30/18 00:00 Imaging - Results Chest X-ray: Report Reviewed, Image Reviewed Assessment/Plan 63 year-old female with a PMH significant for HTN, HLD, IDDM, lymphoma in remission, breast cancer, hypothyroidism, and GERD. Admitted for influenza. Influenza Hypertension Hyperlipidemia IDDM Lymphoma Breast cancer Hypothyroidism GERD Hypokalemia plan i am going to start her on abx patient has not been well now for more than 2 weeks and continues to spike fevers and sob also she is an immunocompromised patient if the patient worsens we will get an imaging studies incentive torres rest as per the team
[2018-04-30] MEDS ORDERED: PIPERACILLIN/TAZOB 3.375 GM 3.375 GM in DEXTROSE 5%-WATER - 50 ML IVPB SCH (13:45)
[2018-04-30] MEDS ORDERED: MEROPENEM 1 GM VIAL (RESTRICTED TO ID) IVPB ONE ×2 (14:11→23:57)
[2018-04-30] MEDS ORDERED: DEXTROSE 5%-WATER 100 ML IVPB ONE ×2 (14:11→23:56)
[2018-04-30] MEDS ORDERED: MEROPENEM 1 GM in DEXTROSE 5%-WATER 100 ML IVPB SCH (14:15)
[2018-04-30] MEDS: ACETAMINOPHEN 325 MG TABLET (FP) PO PRN (14:23)
[2018-04-30] MEDS: MEROPENEM 1 GM in DEXTROSE 5%-WATER 100 ML IVPB SCH ×2 (14:29→17:57)
--- NOTE | 2018-04-30 15:05 | EKG ---
Test Reason : Blood Pressure : / mmHG Vent. Rate : 098 BPM Atrial Rate : 098 BPM P-R Int : 130 ms QRS Dur : 128 ms QT Int : 394 ms P-R-T Axes : 047 010 040 degrees QTc Int : 503 ms NORMAL SINUS RHYTHM RIGHT BUNDLE BRANCH BLOCK ABNORMAL ECG NO PREVIOUS ECGS AVAILABLE Confirmed by SONIA VARNER MD ([id number]) on 04/30/2018 3:05:02 PM Referred By: DR DURAN Confirmed By:SONIA VARNER MD
[2018-04-30] MEDS ORDERED: PROCHLORPERAZINE INJECTION 10 MG/2 ML VIAL IVPB PRN (15:24)
[2018-04-30] MEDS ORDERED: METOCLOPRAMIDE HCL INJECTION 10 MG/2 ML VIAL IVPUSH PRN (15:50)
[2018-04-30] MEDS ORDERED: ALBUTEROL SO4 2.5/IPRATROPIUM 0.5 INH SOL 3 ML VIAL.NEB. NEB ONE (17:48)
[2018-04-30] MEDS: ALBUTEROL SO4 2.5/IPRATROPIUM 0.5 INH SOL 3 ML VIAL.NEB. NEB SCH ×2 (17:50→20:50)
[2018-04-30] MEDS: DOCUSATE SODIUM 100 MG CAPSULE (FP) PO SCH (21:34)
[2018-04-30] MEDS: ATORVASTATIN CA 20 MG TABLET (FP) PO SCH (21:34)
[2018-04-30] MEDS: OSELTAMIVIR PHOSPHATE 75 MG CAPSULE PO SCH (21:34)
[2018-04-30] MEDS ORDERED: METHOCARBAMOL 500 MG TABLET PO PRN (22:00)
[2018-04-30] MEDS ORDERED: ATORVASTATIN CA 20 MG TABLET (FP) PO SCH (22:00)
[2018-04-30] MEDS: LEVOTHYROXINE NA 100 MCG TABLET (FP) PO SCH (23:19)
[2018-05-01] MEDS: guaiFENesin 200 MG/10 ML 10 ML UNIT-DOSE CUPS PO PRN ×2 (00:02→20:15)
[2018-05-01] MEDS: MEROPENEM 1 GM in DEXTROSE 5%-WATER 100 ML IVPB SCH ×3 (01:30→17:57)
[2018-05-01] MEDS ORDERED: INSULIN (LEVEMIR) 100 UNITS/ML UNITS SQ SCH (06:00)
[2018-05-01] MEDS: ALBUTEROL SO4 2.5/IPRATROPIUM 0.5 INH SOL 3 ML VIAL.NEB. NEB SCH ×4 (08:10→20:14)
[2018-05-01] MEDS ORDERED: INSULIN (LEVEMIR) 100 UNITS/ML UNITS SQ ONE (08:15)
[2018-05-01] MEDS: INSULIN (LEVEMIR) 100 UNITS/ML UNITS SQ SCH (08:20)
[2018-05-01 08:40] LABS: BASO % 0.2 % (0-2.0); HEMATOCRIT 29.8 % (32.4-45.2); HEMOGLOBIN 9.4 GM/dl (10.7-15.3); LYMPH % 8.2 % (8-40); MCH 28.2 pg (25.7-33.7); MCHC 31.6 g/dl (32.0-36.0); MEAN CELL VOLUME 89.1 fl (80-96); MEAN PLT VOLUME 8.9 fl (7.5-11.1); MONO % 7.5 % (3.8-10.2); NEUT % 83.1 % (42.8-82.8); PLATELET COUNT 111 K/MM3 (134-434); RBC 3.34 M/mm3 (3.60-5.2); RDW 16.2 % (11.6-15.6); WHITE BLOOD COUNT 4.9 K/mm3 (4.0-10.8)
[2018-05-01 08:45] LABS: ANION GAP 9 MMOL/L (8-16); BLOOD UREA NITROGEN 9 mg/dl (7-18); CALCIUM 7.8 mg/dl (8.5-10); CHLORIDE 103 mmol/L (98-107); CO2 28 mmol/L (21-32); CREATININE 0.6 mg/dl (0.55-1.3); GLUCOSE,RANDOM 100 mg/dl (74-106); SODIUM 140 mmol/L (136-145)
[2018-05-01] MEDS: SODIUM CHLORIDE 1,000 ML IV SCH (09:00)
--- NOTE | 2018-05-01 09:26 | PN ---
Progress Note, Physician - Current Medication List Current Medications: Active Medications Acetaminophen (Tylenol -) 650 mg PO Q6H PRN PRN Reason: PAIN OR FEVER Last Admin: 04/30/18 14:23 Dose: 650 mg Albuterol/Ipratropium (Duoneb -) 1 amp NEB RQID [facility] Last Admin: 05/01/18 08:10 Dose: 1 amp Anastrozole (Arimidex -) 1 mg PO DAILY [facility] Last Admin: 04/30/18 09:40 Dose: 1 mg Atorvastatin Calcium (Lipitor -) 20 mg PO HS [facility] Last Admin: 04/30/18 21:34 Dose: 20 mg Docusate Sodium (Colace -) 100 mg PO BID [facility] Last Admin: 04/30/18 21:34 Dose: 100 mg Guaifenesin (Robitussin -) 10 ml PO Q4H PRN PRN Reason: COUGH Last Admin: 05/01/18 00:02 Dose: 10 ml Sodium Chloride (Normal Saline -) 1,000 mls @ 75 mls/hr IV ASDIR [facility] Last Admin: 04/30/18 09:40 Dose: 75 mls/hr Meropenem 1 gm/ Dextrose 100 mls @ 200 mls/hr IVPB Q8H-IV [facility] Last Admin: 05/01/18 01:30 Dose: 200 mls/hr Insulin Detemir (Levemir Vial) 48 units SQ DAILY@0600 [facility] Last Admin: 05/01/18 08:20 Dose: 26 units Levothyroxine Sodium (Synthroid -) 100 mcg PO DAILY@2300 [facility] Last Admin: 04/30/18 23:19 Dose: 100 mcg Methocarbamol (Robaxin -) 750 mg PO HS PRN PRN Reason: BACK PAIN Metoclopramide HCl (Reglan Injection -) 10 mg IVPUSH Q6H PRN PRN Reason: NAUSEA AND/OR VOMITING Oseltamivir Phosphate (Tamiflu -) 75 mg PO BID [facility] Stop: 05/05/18 21:59 Last Admin: 04/30/18 21:34 Dose: 75 mg Pyridoxine HCl (Vitamin B6 -) 100 mg PO DAILY [facility] - Objective Vital Signs: Vital Signs Temperature 99.5 F 05/01/18 07:00 Pulse Rate 86 05/01/18 07:00 Respiratory Rate 18 05/01/18 07:00 Blood Pressure 120/68 05/01/18 07:00 O2 Sat by Pulse Oximetry (%) 95 05/01/18 07:09 Constitutional: Yes: Well Nourished, No Distress, Calm Eyes: Yes: WNL, Conjunctiva Clear, EOM Intact HENT: Yes: WNL, Atraumatic, Normocephalic Neck: Yes: WNL, Trachea Midline Cardiovascular: Yes: WNL, Regular Rate and Rhythm, Tachycardia, S1, S2 Respiratory: Yes: WNL, Regular, Rhonchi, Wheezes Gastrointestinal: Yes: WNL, Normal Bowel Sounds Musculoskeletal: Yes: WNL Extremities: Yes: WNL Edema: No Peripheral Pulses WNL: No Integumentary: Yes: WNL Neurological: Yes: WNL, Alert, Oriented ...Motor Strength: WNL Psychiatric: Yes: WNL, Alert, Oriented Labs: CBC, BMP 05/01/18 06:20 05/01/18 06:20 INR, PTT INR 1.28 (0.83-1.09) H 04/30/18 00:00 Assessment/Plan 63 year-old female with a PMH significant for HTN, HLD, IDDM, lymphoma in remission, breast cancer, hypothyroidism, and GERD. Admitted for influenza. Influenza flu swab testing at urgent care was positive for influenza --immunocompromised s/p stem cell transplant, on anastrozole --febrile, persistent cough --c/w meropenem -- continue Tamiflu --IV fluids --if no improvement, will get CT chest --ID following Hypertension --BP stable --not on anti-hypertensives Hyperlipidemia --continue Lipitor IDDM --takes Levemir in morning Lymphoma --in remission Breast cancer --continue anastrozole Hypothyroidism --continue levothyroxine, takes in evening GERD Hypokalemia --repleted in ED FEN Fluids: NS@75mL/hr Electrolytes: replete as indicated Nutrition: low sodium, diabetic DVT ppx - enoxaparin 40mg daily
[2018-05-01] MEDS ORDERED: POTASSIUM CHLORIDE TABS 20 MEQ TABLET.ER (FP) PO STA (09:27)
[2018-05-01] MEDS ORDERED: PT OWN MED DRAWER 7, Y5N ONE (09:49)
[2018-05-01] MEDS ORDERED: MEROPENEM 1 GM VIAL (RESTRICTED TO ID) IVPB ONE (09:50)
[2018-05-01] MEDS ORDERED: DEXTROSE 5%-WATER 100 ML IVPB ONE (09:50)
[2018-05-01] MEDS ORDERED: LEVOTHYROXINE NA 100 MCG TABLET (FP) PO SCH (10:00)
[2018-05-01] MEDS: ANASTROZOLE 1 MG TABLET PO SCH (10:50)
[2018-05-01] MEDS: DOCUSATE SODIUM 100 MG CAPSULE (FP) PO SCH ×3 (10:51→22:12)
[2018-05-01] MEDS: OSELTAMIVIR PHOSPHATE 75 MG CAPSULE PO SCH ×2 (10:52→22:07)
[2018-05-01] MEDS: PYRIDOXINE HCL (B-6) 50 MG TABLET (FP) PO SCH (10:53)
[2018-05-01] MEDS: ENOXAPARIN NA (PORCINE) 40 MG/0.4 ML DISP.SYRIN SQ SCH (10:54)
[2018-05-01] MEDS: LEVOTHYROXINE NA 100 MCG TABLET (FP) PO SCH (11:20)
--- NOTE | 2018-05-01 11:55 | PN ---
Progress Note, Physician History of Present Illness: Pt seen and examined. Chart reviewed, labs/imaging results noted. Today she states she if feeling better and denies shortness of breath. Afebrile currently , Tmax 100.2F. Tolerating antibiotic. Denies rash/pruritis. - Current Medication List Current Medications: Active Medications Acetaminophen (Tylenol -) 650 mg PO Q6H PRN PRN Reason: PAIN OR FEVER Last Admin: 04/30/18 14:23 Dose: 650 mg Albuterol/Ipratropium (Duoneb -) 1 amp NEB RQID [facility] Last Admin: 05/01/18 08:10 Dose: 1 amp Anastrozole (Arimidex -) 1 mg PO DAILY [facility] Last Admin: 05/01/18 10:50 Dose: 1 mg Atorvastatin Calcium (Lipitor -) 20 mg PO HS [facility] Last Admin: 04/30/18 21:34 Dose: 20 mg Docusate Sodium (Colace -) 100 mg PO BID [facility] Last Admin: 05/01/18 10:51 Dose: Not Given Enoxaparin Sodium (Lovenox -) 40 mg SQ DAILY [facility] Last Admin: 05/01/18 10:54 Dose: 40 mg Guaifenesin (Robitussin -) 10 ml PO Q4H PRN PRN Reason: COUGH Last Admin: 05/01/18 00:02 Dose: 10 ml Sodium Chloride (Normal Saline -) 1,000 mls @ 75 mls/hr IV ASDIR [facility] Last Admin: 04/30/18 09:40 Dose: 75 mls/hr Meropenem 1 gm/ Dextrose 100 mls @ 200 mls/hr IVPB Q8H-IV [facility] Last Admin: 05/01/18 10:53 Dose: 200 mls/hr Insulin Detemir (Levemir Vial) 48 units SQ DAILY@0600 [facility] Last Admin: 05/01/18 08:20 Dose: 26 units Levothyroxine Sodium (Synthroid -) 100 mcg PO DAILY@2300 [facility] Last Admin: 04/30/18 23:19 Dose: 100 mcg Methocarbamol (Robaxin -) 750 mg PO HS PRN PRN Reason: BACK PAIN Metoclopramide HCl (Reglan Injection -) 10 mg IVPUSH Q6H PRN PRN Reason: NAUSEA AND/OR VOMITING Oseltamivir Phosphate (Tamiflu -) 75 mg PO BID [facility] Stop: 05/05/18 21:59 Last Admin: 05/01/18 10:52 Dose: 75 mg Potassium Chloride (K-Dur -) 40 meq PO ONCE ONE Stop: 05/01/18 12:01 Potassium Chloride (K-Dur -) 40 meq PO ONCE ONE Stop: 05/01/18 18:01 Pyridoxine HCl (Vitamin B6 -) 100 mg PO DAILY [facility] Last Admin: 05/01/18 10:53 Dose: 100 mg - Objective Vital Signs: Vital Signs Temperature 98.7 F 05/01/18 10:10 Pulse Rate 88 05/01/18 10:10 Respiratory Rate 18 05/01/18 10:10 Blood Pressure 129/74 05/01/18 10:10 O2 Sat by Pulse Oximetry (%) 96 05/01/18 10:10 Constitutional: Yes: No Distress, Calm Eyes: Yes: Conjunctiva Clear Neck: Yes: Supple Cardiovascular: Yes: Regular Rate and Rhythm Respiratory: Yes: Diminished (bases) Gastrointestinal: Yes: Normal Bowel Sounds, Soft Extremities: Yes: WNL Neurological: Yes: Alert Labs: CBC, BMP 05/01/18 06:20 05/01/18 06:20 INR, PTT INR 1.28 (0.83-1.09) H 04/30/18 00:00 Blood cultures - no growth 24h Urine culture - GNB Urinary antigens - neg Sputum culture - no growth - ....Imaging Chest X-ray: Report Reviewed Problem List - Problems (1) Pneumonia Code(s): J18.9 - PNEUMONIA, UNSPECIFIED ORGANISM Qualifiers: Pneumonia type: due to unspecified organism Lung location: lower lobe of lung (2) Urinary tract infection Code(s): N39.0 - URINARY TRACT INFECTION, SITE NOT SPECIFIED Qualifiers: Urinary tract infection type: site unspecified Hematuria presence: with hematuria Qualified Code(s): N39.0 - Urinary tract infection, site not specified; R31.9 - Hematuria, unspecified (3) Viral syndrome Code(s): B34.9 - VIRAL INFECTION, UNSPECIFIED Assessment/Plan 63 y.o. female with PMH of lymphoma s/p stem cell transplant, Breast CA s/p mastectomies/breast implants, DM, hypothyroidism presenting with cough/fever Influenza Possible PNA UTI -- Continue current antibiotics -- Monitor for rash -- If persistent fevers suggest CT Chest -- Continue close monitoring -- F/U Urine culture isolate
[2018-05-01] MEDS ORDERED: POTASSIUM CHLORIDE TABS 20 MEQ TABLET.ER (FP) PO ONE ×2 (12:00→18:00)
[2018-05-01 15:57] LABS: ALBUMIN 2.5 g/dl (3.4-5.0); ALK PHOS 58 U/L (45-117); ANION GAP 10 MMOL/L (8-16); BILIRUBIN,TOTAL 0.5 mg/dl (0.2-1); BLOOD UREA NITROGEN 9 mg/dl (7-18); CALCIUM 7.8 mg/dl (8.5-10); CHLORIDE 103 mmol/L (98-107); CO2 25 mmol/L (21-32); CREATININE 0.6 mg/dl (0.55-1.3); GLUCOSE,RANDOM 98 mg/dl (74-106); SGOT/AST 20 U/L (15-37); SGPT/ALT 16 U/L (13-61); SODIUM 138 mmol/L (136-145)
[2018-05-01] MEDS: ATORVASTATIN CA 20 MG TABLET (FP) PO SCH ×2 (22:07→22:15)
[2018-05-02] MEDS ORDERED: DEXTROSE 5%-WATER 100 ML IVPB ONE ×2 (01:04→08:39)
[2018-05-02] MEDS ORDERED: MEROPENEM 1 GM VIAL (RESTRICTED TO ID) IVPB ONE ×2 (01:05→08:39)
[2018-05-02] MEDS: MEROPENEM 1 GM in DEXTROSE 5%-WATER 100 ML IVPB SCH ×3 (01:25→17:20)
[2018-05-02] MEDS: ACETAMINOPHEN 325 MG TABLET (FP) PO PRN (06:28)
[2018-05-02] MEDS: INSULIN (LEVEMIR) 100 UNITS/ML UNITS SQ SCH (06:29)
[2018-05-02] MEDS: ALBUTEROL SO4 2.5/IPRATROPIUM 0.5 INH SOL 3 ML VIAL.NEB. NEB SCH ×4 (08:00→20:45)
[2018-05-02] MEDS ORDERED: PT OWN MED DRAWER 7, Y5N ONE (08:38)
[2018-05-02 09:04] LABS: HEMATOCRIT 29.9 % (32.4-45.2); HEMOGLOBIN 9.5 GM/dl (10.7-15.3); RBC 3.36 M/mm3 (3.60-5.2); WHITE BLOOD COUNT 5.5 K/mm3 (4.0-10.8)
[2018-05-02 09:05] LABS: MCH 28.4 pg (25.7-33.7); MEAN CELL VOLUME 88.8 fl (80-96); MEAN PLT VOLUME 7.9 fl (7.5-11.1); RDW 15.7 % (11.6-15.6)
[2018-05-02] MEDS: DOCUSATE SODIUM 100 MG CAPSULE (FP) PO SCH ×2 (09:06→21:25)
[2018-05-02] MEDS: ANASTROZOLE 1 MG TABLET PO SCH (09:06)
[2018-05-02] MEDS: PYRIDOXINE HCL (B-6) 50 MG TABLET (FP) PO SCH (09:07)
[2018-05-02] MEDS: OSELTAMIVIR PHOSPHATE 75 MG CAPSULE PO SCH ×2 (09:07→21:25)
[2018-05-02] MEDS: ENOXAPARIN NA (PORCINE) 40 MG/0.4 ML DISP.SYRIN SQ SCH (09:09)
[2018-05-02 09:31] LABS: ALBUMIN 2.4 g/dl (3.4-5.0); ALK PHOS 65 U/L (45-117); ANION GAP 8 MMOL/L (8-16); BILIRUBIN,TOTAL 0.5 mg/dl (0.2-1); BLOOD UREA NITROGEN 10 mg/dl (7-18); CALCIUM 7.9 mg/dl (8.5-10); CHLORIDE 103 mmol/L (98-107); CO2 26 mmol/L (21-32); CREATININE 0.6 mg/dl (0.55-1.3); GLUCOSE,RANDOM 109 mg/dl (74-106); POTASSIUM 3.8 mmol/L (3.5-5.1); SGOT/AST 20 U/L (15-37); SGPT/ALT 17 U/L (13-61); SODIUM 137 mmol/L (136-145); TOT PROT 4.9 g/dl (6.4-8.2)
[2018-05-02] MEDS ORDERED: LORATADINE 10 MG TABLET PO ONE (11:00)
--- NOTE | 2018-05-02 11:01 | PN ---
Physical Exam: SUBJECTIVE: Patient seen and examined. pt reports abdominal pain, diarrhea, c diff neg, overall feeling a little better, denies sob. OBJECTIVE: Vital Signs Period Temp Pulse Resp BP Sys/Mcqueen Pulse Ox Last 24 Hr 98.5 F-100.0 F 88-98 16-19 111-137/63-76 95-98 PE Neuro: alert, awake, cn 2-12intact Pulm: bi basilar rhonchi, + wet cough CV: s1 s2 rrr Abd: s nt nd + bs Ext: no le edema, warm Skin: R CW port Laboratory Results - last 24 hr 05/01/18 05/02/18 05/02/18 14:30 07:00 07:00 WBC 5.5 RBC 3.36 L Hgb 9.5 L Hct 29.9 L MCV 88.8 MCH 28.4 MCHC 32.0 RDW 15.7 H Plt Count 136.0 MPV 7.9 Sodium 138 137 Potassium 3.0 L 3.8 Chloride 103 103 Carbon Dioxide 25 26 Anion Gap 10 8 BUN 9 10 Creatinine 0.6 0.6 Creat Clearance w eGFR > 60 > 60 Random Glucose 98 109 H Calcium 7.8 L 7.9 L Total Bilirubin 0.5 0.5 AST 20 20 ALT 16 17 Alkaline Phosphatase 58 D 65 Total Protein 5.0 L 4.9 L Albumin 2.5 L 2.4 L Active Medications Generic Name Dose Route Start Last Admin Trade Name Freq PRN Reason Stop Dose Admin Acetaminophen 650 mg 04/30/18 03:02 05/02/18 06:28 Tylenol - PO 650 mg Q6H PRN Administration PAIN OR FEVER Albuterol/Ipratropium 1 amp 04/30/18 20:00 05/02/18 08:00 Duoneb - NEB 1 amp RQID MARY Administration Anastrozole 1 mg 04/30/18 10:00 05/02/18 09:06 Arimidex - PO 1 mg DAILY MARY Administration Atorvastatin Calcium 20 mg 04/30/18 22:00 05/01/18 22:15 Lipitor - PO Not Given HS MARY Docusate Sodium 100 mg 04/30/18 22:00 05/02/18 09:06 Colace - PO Not Given BID MARY Enoxaparin Sodium 40 mg 05/01/18 10:00 05/02/18 09:09 Lovenox - SQ 40 mg DAILY MARY Administration Guaifenesin 10 ml 04/30/18 23:46 05/01/18 20:15 Robitussin - PO 10 ml Q4H PRN Administration COUGH Sodium Chloride 1,000 mls @ 75 mls/hr 04/30/18 08:30 05/01/18 09:00 Normal Saline - IV 75 mls/hr ASDIR MARY Administration Meropenem 1 gm/ Dextrose 100 mls @ 200 mls/hr 04/30/18 14:15 05/02/18 09:07 IVPB 200 mls/hr Q8H-IV MARY Administration Insulin Detemir 48 units 05/01/18 06:00 05/02/18 06:29 Levemir Vial SQ Not Given DAILY@0600 [facility] Levothyroxine Sodium 100 mcg 04/30/18 23:00 05/01/18 11:20 Synthroid - PO 100 mcg DAILY@2300 [facility] Administration Methocarbamol 750 mg 04/30/18 22:00 Robaxin - PO HS PRN BACK PAIN Metoclopramide HCl 10 mg 04/30/18 15:50 Reglan Injection - IVPUSH Q6H PRN NAUSEA AND/OR VOMITING Oseltamivir Phosphate 75 mg 04/30/18 22:00 05/02/18 09:07 Tamiflu - PO 05/05/18 21:59 75 mg BID [facility] Administration Pyridoxine HCl 100 mg 05/01/18 10:00 05/02/18 09:07 Vitamin B6 - PO Not Given DAILY [facility] Microbiology 04/30/18 01:00 Urine Culture - Final Urine - Urine Clean Catch Escherichia Coli 04/30/18 04:00 Gram Stain - Final Sputum - Expectorated Sputum Culture - Final NORMAL RESPIRATORY GINNY 05/01/18 13:00 Clostridium difficile Antigen (RACHAEL) - Final Stool Clostridium difficile Toxin Assay - Final 04/30/18 00:00 Blood Culture - Preliminary Blood - Peripheral Venous NO GROWTH OBTAINED AFTER 48 HOURS, INCUBATION TO CONTINUE FOR 3 DAYS. 04/30/18 00:00 Blood Culture - Preliminary Blood - Peripheral Venous NO GROWTH OBTAINED AFTER 48 HOURS, INCUBATION TO CONTINUE FOR 3 DAYS. 63 year-old female with a PMH significant for HTN, HLD, IDDM, lymphoma in remission, breast cancer, hypothyroidism, and GERD. Admitted for influenza. Plan: 1. Influenza flu swab testing at urgent care was positive for influenza - Immunocompromised s/p stem cell transplant, on anastrozole - Febrile early this AM - Cont Meropenem - Cont Tamiflu - Start muscinex - If no improvement, will get CT chest - Neg for C diff - ID following - Pulm consulted 2. Lymphoma - In remission 3. Breast cancer - Continue anastrozole 4. Hypertension - Stable, off meds 5. Hyperlipidemia - Continue Lipitor 6. IDDM - Levemir 48 units in morning 7. Hypothyroidism - Continue levothyroxine, takes in evening 8. DVT ppx - enoxaparin 40mg daily Visit type - Emergency Visit Emergency Visit: Yes ED Registration Date: 04/30/18 Care time: The patient presented to the Emergency Department on the above date and was hospitalized for further evaluation of their emergent condition. - New Patient This patient is new to me today: Yes Date on this admission: 05/02/18 - Critical Care Critical Care patient: No
[2018-05-02] MEDS: SODIUM CHLORIDE 1,000 ML IV SCH (11:30)
[2018-05-02] MEDS: guaiFENesin/D-METHORPHAN HB 1 EACH TAB.ER.12H PO SCH ×2 (11:45→21:25)
--- NOTE | 2018-05-02 13:29 | PN ---
Progress Note, Physician History of Present Illness: patient looks better still with wheeze having loose stools - Current Medication List Current Medications: Active Medications Acetaminophen (Tylenol -) 650 mg PO Q6H PRN PRN Reason: PAIN OR FEVER Last Admin: 05/02/18 06:28 Dose: 650 mg Albuterol/Ipratropium (Duoneb -) 1 amp NEB RQID [facility] Last Admin: 05/02/18 12:15 Dose: 1 amp Anastrozole (Arimidex -) 1 mg PO DAILY [facility] Last Admin: 05/02/18 09:06 Dose: 1 mg Atorvastatin Calcium (Lipitor -) 20 mg PO HS [facility] Last Admin: 05/01/18 22:15 Dose: Not Given Docusate Sodium (Colace -) 100 mg PO BID [facility] Last Admin: 05/02/18 09:06 Dose: Not Given Enoxaparin Sodium (Lovenox -) 40 mg SQ DAILY [facility] Last Admin: 05/02/18 09:09 Dose: 40 mg Guaifenesin (Robitussin -) 10 ml PO Q4H PRN PRN Reason: COUGH Last Admin: 05/01/18 20:15 Dose: 10 ml Guaifenesin (Mucinex Dm -) 1 tablet PO BID [facility] Last Admin: 05/02/18 11:45 Dose: 1 tablet Meropenem 1 gm/ Dextrose 100 mls @ 200 mls/hr IVPB Q8H-IV [facility] Last Admin: 05/02/18 09:07 Dose: 200 mls/hr Sodium Chloride (Normal Saline -) 1,000 mls @ 60 mls/hr IV ASDIR [facility] Last Admin: 05/02/18 11:30 Dose: 60 mls/hr Insulin Detemir (Levemir Vial) 48 units SQ DAILY@0600 [facility] Last Admin: 05/02/18 06:29 Dose: Not Given Levothyroxine Sodium (Synthroid -) 100 mcg PO DAILY@2300 [facility] Last Admin: 05/01/18 11:20 Dose: 100 mcg Methocarbamol (Robaxin -) 750 mg PO HS PRN PRN Reason: BACK PAIN Metoclopramide HCl (Reglan Injection -) 10 mg IVPUSH Q6H PRN PRN Reason: NAUSEA AND/OR VOMITING Oseltamivir Phosphate (Tamiflu -) 75 mg PO BID [facility] Stop: 05/05/18 21:59 Last Admin: 05/02/18 09:07 Dose: 75 mg Pyridoxine HCl (Vitamin B6 -) 100 mg PO DAILY [facility] Last Admin: 05/02/18 09:07 Dose: Not Given - Objective Vital Signs: Vital Signs Temperature 100.0 F H 05/02/18 04:00 Pulse Rate 88 05/02/18 04:00 Respiratory Rate 05/02/18 08:31 Blood Pressure 111/63 05/02/18 04:00 O2 Sat by Pulse Oximetry (%) 95 05/02/18 08:31 Constitutional: Yes: No Distress, Calm Cardiovascular: Yes: Regular Rate and Rhythm Respiratory: Yes: Regular, Rhonchi, Wheezes Gastrointestinal: Yes: Normal Bowel Sounds, Soft Musculoskeletal: Yes: WNL Extremities: Yes: WNL Neurological: Yes: Alert, Oriented Psychiatric: Yes: Alert, Oriented Labs: CBC, BMP 05/02/18 07:00 05/02/18 07:00 INR, PTT INR 1.28 (0.83-1.09) H 04/30/18 00:00 Assessment/Plan 63 year-old female with a PMH significant for HTN, HLD, IDDM, lymphoma in remission, breast cancer, hypothyroidism, and GERD. Admitted for influenza. Influenza Hypertension Hyperlipidemia IDDM Lymphoma Breast cancer Hypothyroidism GERD Hypokalemia Pneumonia Code(s): J18.9 - PNEUMONIA, UNSPECIFIED ORGANISM Qualifiers: Pneumonia type: due to unspecified organism Lung location: lower lobe of lung Urinary tract infection Code(s): N39.0 - URINARY TRACT INFECTION, SITE NOT SPECIFIED Qualifiers: Urinary tract infection type: site unspecified Hematuria presence: with hematuria Qualified Code(s): N39.0 - Urinary tract infection, site not specified; R31.9 - Hematuria, unspecified Viral syndrome Code(s): B34.9 - VIRAL INFECTION, UNSPECIFIED plan continue abx await for cdiff results nutrition rest as per the team
[2018-05-02] MEDS ORDERED: ONDANSETRON *ODT* 4 MG TABLET SL ONE (13:39)
[2018-05-02] MEDS: ATORVASTATIN CA 20 MG TABLET (FP) PO SCH (21:25)
[2018-05-02] MEDS: LEVOTHYROXINE NA 100 MCG TABLET (FP) PO SCH (23:08)
[2018-05-03] MEDS ORDERED: DEXTROSE 5%-WATER 100 ML IVPB ONE ×2 (01:49→09:21)
[2018-05-03] MEDS ORDERED: MEROPENEM 1 GM VIAL (RESTRICTED TO ID) IVPB ONE ×2 (01:49→09:21)
[2018-05-03] MEDS: MEROPENEM 1 GM in DEXTROSE 5%-WATER 100 ML IVPB SCH ×2 (01:51→09:30)
[2018-05-03 06:07] VITALS: BP 121/68; PULSE 84; TEMP 98.9
[2018-05-03] MEDS: INSULIN (LEVEMIR) 100 UNITS/ML UNITS SQ SCH (06:28)
[2018-05-03 08:15] LABS: ANION GAP 6 MMOL/L (8-16); BLOOD UREA NITROGEN 9 mg/dl (7-18); CHLORIDE 104 mmol/L (98-107); CO2 27 mmol/L (21-32); CREATININE 0.6 mg/dl (0.55-1.3); GLUCOSE,RANDOM 100 mg/dl (74-106); POTASSIUM 3.7 mmol/L (3.5-5.1); SODIUM 137 mmol/L (136-145)
[2018-05-03 08:20] LABS: BASO % 0.3 % (0-2.0); EOS % 4.8 % (0-4.5); HEMATOCRIT 29.7 % (32.4-45.2); HEMOGLOBIN 9.5 GM/dl (10.7-15.3); LYMPH % 7.8 % (8-40); MCH 28.5 pg (25.7-33.7); MCHC 31.9 g/dl (32.0-36.0); MEAN CELL VOLUME 89.4 fl (80-96); MEAN PLT VOLUME 8.6 fl (7.5-11.1); MONO % 8.8 % (3.8-10.2); NEUT % 78.3 % (42.8-82.8); PLATELET COUNT 146 K/MM3 (134-434); RBC 3.32 M/mm3 (3.60-5.2); WHITE BLOOD COUNT 4.9 K/mm3 (4.0-10.8)
[2018-05-03] MEDS: ALBUTEROL SO4 2.5/IPRATROPIUM 0.5 INH SOL 3 ML VIAL.NEB. NEB SCH (09:00)
--- NOTE | 2018-05-03 09:18 | PN ---
Progress Note, Physician History of Present Illness: patient doing well breathing better comfortable - Current Medication List Current Medications: Active Medications Acetaminophen (Tylenol -) 650 mg PO Q6H PRN PRN Reason: PAIN OR FEVER Last Admin: 05/02/18 06:28 Dose: 650 mg Albuterol/Ipratropium (Duoneb -) 1 amp NEB RQID [facility] Last Admin: 05/02/18 20:45 Dose: 1 amp Anastrozole (Arimidex -) 1 mg PO DAILY [facility] Last Admin: 05/02/18 09:06 Dose: 1 mg Atorvastatin Calcium (Lipitor -) 20 mg PO HS [facility] Last Admin: 05/02/18 21:25 Dose: Not Given Docusate Sodium (Colace -) 100 mg PO BID [facility] Last Admin: 05/02/18 21:25 Dose: Not Given Enoxaparin Sodium (Lovenox -) 40 mg SQ DAILY [facility] Last Admin: 05/02/18 09:09 Dose: 40 mg Guaifenesin (Robitussin -) 10 ml PO Q4H PRN PRN Reason: COUGH Last Admin: 05/01/18 20:15 Dose: 10 ml Guaifenesin (Mucinex Dm -) 1 tablet PO BID [facility] Last Admin: 05/02/18 21:25 Dose: 1 tablet Meropenem 1 gm/ Dextrose 100 mls @ 200 mls/hr IVPB Q8H-IV [facility] Last Admin: 05/03/18 01:51 Dose: 200 mls/hr Sodium Chloride (Normal Saline -) 1,000 mls @ 60 mls/hr IV ASDIR [facility] Last Admin: 05/02/18 11:30 Dose: 60 mls/hr Insulin Detemir (Levemir Vial) 48 units SQ DAILY@0600 [facility] Last Admin: 05/03/18 06:28 Dose: Not Given Levothyroxine Sodium (Synthroid -) 100 mcg PO DAILY@2300 [facility] Last Admin: 05/02/18 23:08 Dose: 100 mcg Methocarbamol (Robaxin -) 750 mg PO HS PRN PRN Reason: BACK PAIN Metoclopramide HCl (Reglan Injection -) 10 mg IVPUSH Q6H PRN PRN Reason: NAUSEA AND/OR VOMITING Oseltamivir Phosphate (Tamiflu -) 75 mg PO BID [facility] Stop: 05/05/18 21:59 Last Admin: 05/02/18 21:25 Dose: 75 mg Pyridoxine HCl (Vitamin B6 -) 100 mg PO DAILY [facility] Last Admin: 05/02/18 09:07 Dose: Not Given - Objective Vital Signs: Vital Signs Temperature 98.9 F 05/03/18 06:05 Pulse Rate 84 05/03/18 06:05 Respiratory Rate 18 05/03/18 06:05 Blood Pressure 121/68 05/03/18 06:05 O2 Sat by Pulse Oximetry (%) 95 05/03/18 08:00 Constitutional: Yes: No Distress, Calm Cardiovascular: Yes: Regular Rate and Rhythm Respiratory: Yes: Regular, Rhonchi Gastrointestinal: Yes: Normal Bowel Sounds, Soft Musculoskeletal: Yes: WNL Extremities: Yes: WNL Neurological: Yes: Alert, Oriented Psychiatric: Yes: Alert, Oriented Labs: CBC, BMP 05/03/18 07:30 05/03/18 07:30 INR, PTT INR 1.28 (0.83-1.09) H 04/30/18 00:00 Assessment/Plan 63 year-old female with a PMH significant for HTN, HLD, IDDM, lymphoma in remission, breast cancer, hypothyroidism, and GERD. Admitted for influenza. Influenza Hypertension Hyperlipidemia IDDM Lymphoma Breast cancer Hypothyroidism GERD Hypokalemia Pneumonia Code(s): J18.9 - PNEUMONIA, UNSPECIFIED ORGANISM Qualifiers: Pneumonia type: due to unspecified organism Lung location: lower lobe of lung Urinary tract infection Code(s): N39.0 - URINARY TRACT INFECTION, SITE NOT SPECIFIED Qualifiers: Urinary tract infection type: site unspecified Hematuria presence: with hematuria Qualified Code(s): N39.0 - Urinary tract infection, site not specified; R31.9 - Hematuria, unspecified Viral syndrome Code(s): B34.9 - VIRAL INFECTION, UNSPECIFIED plan can change to levaquin for 3 more days rest continue current mgmt patient doing well
[2018-05-03] MEDS ORDERED: PT OWN MED DRAWER 7, Y5N ONE (09:20)
[2018-05-03] MEDS: ANASTROZOLE 1 MG TABLET PO SCH (09:30)
[2018-05-03] MEDS: DOCUSATE SODIUM 100 MG CAPSULE (FP) PO SCH (09:30)
[2018-05-03] MEDS: ENOXAPARIN NA (PORCINE) 40 MG/0.4 ML DISP.SYRIN SQ SCH (09:30)
[2018-05-03] MEDS: OSELTAMIVIR PHOSPHATE 75 MG CAPSULE PO SCH (09:30)
[2018-05-03] MEDS: guaiFENesin/D-METHORPHAN HB 1 EACH TAB.ER.12H PO SCH (09:31)
[2018-05-03] MEDS: PYRIDOXINE HCL (B-6) 50 MG TABLET (FP) PO SCH (09:31)
--- NOTE | 2018-05-03 09:31 | DS ---
Physical Exam: SUBJECTIVE: Patient seen and examined at bedside. Breathing is better. Feels ready to go home. OBJECTIVE: Vital Signs Period Temp Pulse Resp BP Sys/Mcqueen Pulse Ox Last 24 Hr 98.2 F-99.6 F 81-101 17-18 119-131/68-74 95-95 PHYSICAL EXAM GENERAL: Awake, alert, and fully oriented; right upper chest port HEAD: Normal with no signs of trauma. EYES: Pupils equal, round and reactive to light, extraocular movements intact, sclera anicteric, conjunctiva clear. No lid lag. EARS, NOSE, THROAT: Ears normal, nares patent, oropharynx clear without exudates. Moist mucous membranes. LUNGS: Coarse breath sounds at the bases; good air movement HEART: Regular rate and rhythm, S1 and S2 ABDOMEN: Soft, nontender, not distended UPPER EXTREMITIES: 2+ pulses, warm, well-perfused. No cyanosis. No clubbing. No peripheral edema. LOWER EXTREMITIES: 2+ pulses, warm, well-perfused. No calf tenderness. No peripheral edema. NEUROLOGICAL: Cranial nerves II-XII intact. Normal speech. LABS Laboratory Results - last 24 hr 05/02/18 05/03/18 05/03/18 07:00 07:30 07:30 WBC 4.9 RBC 3.32 L Hgb 9.5 L Hct 29.7 L MCV 89.4 MCH 28.5 MCHC 31.9 L RDW 16.0 H Plt Count 146 MPV 8.6 Absolute Neuts (auto) 3.9 Neutrophils % 78.3 Lymphocytes % 7.8 L Monocytes % 8.8 Eosinophils % 4.8 H Basophils % 0.3 Sodium 137 137 Potassium 3.8 3.7 Chloride 103 104 Carbon Dioxide 26 27 Anion Gap 8 6 L BUN 10 9 Creatinine 0.6 0.6 Creat Clearance w eGFR > 60 > 60 Random Glucose 109 H 100 Calcium 7.9 L 8.0 L Total Bilirubin 0.5 AST 20 ALT 17 Alkaline Phosphatase 65 Total Protein 4.9 L Albumin 2.4 L HOSPITAL COURSE: Date of Admission:04/30/18 Date of Discharge: 05/03/18 Pre hopsital course 63 year-old female with a PMH significant for HTN, HLD, IDDM, lymphoma in remission, breast cancer, hypothyroidism, and GERD. 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 About 5 days ago patient experienced nausea, vomiting, and diarrhea x 24 hours. Two days later she developed a cough. She was seen at [place] [facility] and was flu swab negative. The cough worsened and patient went to an urgent care 2 days later and tested flu positive. She was not started on any medications. Patient re-presented to the [place] ED yesterday with fever recorded at home of 102 and a persistent, productive cough. ER course (1) T100.5, p111 (2) Flu swab negative (3) CXR: no acute process Subsequent hospital course 63 year-old female with a PMH significant for HTN, HLD, IDDM, lymphoma in remission, breast cancer, hypothyroidism, and GERD. Admitted for influenza. 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[employer], multiple sick contacts, immunocompromised s/p stem cell transplant, on anastrozole --flu swab testing at urgent care was positive for influenza --Tm100.5 and p111 at time of admission, meeting SIRS criteria --CXR no acute process --treated with meropenem (04/30-05/03) and discharged on levofloxacin x 3 days --treated with Tamiflu, discharged with prescription to finish 5-day course E.coli UTI --antibiotics as above Hypertension --BP remained stable --not on anti-hypertensives Hyperlipidemia --continued Lipitor IDDM --Levemir in morning Lymphoma --in remission Breast cancer --continue anastrozole Hypothyroidism --continue levothyroxine, takes in evening GERD Hypokalemia --repleted in ED FEN Fluids: NS@75mL/hr Electrolytes: replete as indicated Nutrition: low sodium, diabetic Minutes to complete discharge: 35 Discharge Summary Reason For Visit: FEVER/COUGH/FLU Current Active Problems Pneumonia (Acute) Condition: Improved - Instructions Referrals: Bonny Curran MD [Primary Care Provider] - Disposition: HOME - Home Medications Comprehensive Discharge Medication List: Ambulatory Orders Losartan Potassium 100 mg PO DAILY 06/27/13 Atorvastatin Ca [Lipitor -] 20 mg PO HS 07/13/14 Diphenoxylate HCl/Atrop Sulf [Lomotil Tablet] 1 each PO Q4H PRN 07/13/14 Methocarbamol [Robaxin -] 750 mg PO HS PRN 07/13/14 Oxycodone HCl/Acetaminophen [Percocet 5/325 -] 1 tab PO Q6H PRN 07/13/14 Prochlorperazine Maleate [Compazine] 10 mg PO Q6H PRN 07/13/14 Anastrozole [Arimidex -] 1 mg PO DAILY 03/25/17 Cholecalciferol (Vitamin D3) [Vitamin D] 2,000 unit PO DAILY 03/25/17 Docusate Sodium [Colace] 100 mg PO BID 03/25/17 Insulin Degludec [Tresiba Flextouch U-100] 48 unit SQ HS 03/25/17 Insulin Lispro [Humalog] 0 unit SQ ASDIR 03/25/17 Levothyroxine [Synthroid -] 100 mcg PO DAILY 03/25/17 Magnesium 500 mg PO BID 03/25/17 Omeprazole Magnesium [Prilosec Otc] 40 mg PO DAILY 03/25/17 Potassium Chloride 10 meq PO BID 03/25/17 Pyridoxine HCl [Vitamin B6] 100 mg PO DAILY 03/25/17 This patient is new to me today: No Emergency Visit: Yes ED Registration Date: 04/30/18 Care time: The patient presented to the Emergency Department on the above date and was hospitalized for further evaluation of their emergent condition. Critical Care patient: No - Discharge Referral Referred to [facility] Med P.C.: No
[2018-05-03] MEDS: SODIUM CHLORIDE 1,000 ML IV SCH (11:00)
[2018-05-03] MEDS ORDERED: INSULIN (LEVEMIR) 100 UNITS/ML UNITS SQ ONE (11:10)
--- NOTE | 2018-05-03 21:29 | EKG ---
Test Reason : Blood Pressure : / mmHG Vent. Rate : 085 BPM Atrial Rate : 085 BPM P-R Int : 128 ms QRS Dur : 118 ms QT Int : 412 ms P-R-T Axes : 046 008 041 degrees QTc Int : 490 ms NORMAL SINUS RHYTHM POSSIBLE LEFT ATRIAL ENLARGEMENT RIGHT BUNDLE BRANCH BLOCK ABNORMAL ECG WHEN COMPARED WITH ECG OF 29-APR-2018 23:48, NO SIGNIFICANT CHANGE WAS FOUND Confirmed by ROMÁN YU MD ([id number]) on 05/03/2018 9:28:40 PM Referred By: LISHA Confirmed By:ROMÁN YU MD
== END 2018-05-03 11:42 | disposition home or self-care (01) | DRG 153 ==
LOC: FER 22:57 → FM/S 04-30 02:12 → UNDOADMIN 04-30 02:33
PROVIDERS: ADMIT Internal Medicine; ATTEND Nurse Practitioner Acute Care
DX: J11.1 Influenza due to unidentified influenza virus with other respiratory manifestations (principal); N39.0 Urinary tract infection, site not specified; E11.9 Type 2 diabetes mellitus without complications; D21.9 Benign neoplasm of connective and other soft tissue, unspecified; K21.9 Gastro-esophageal reflux disease without esophagitis; Z85.3 Personal history of malignant neoplasm of breast; E89.0 Postprocedural hypothyroidism; I10 Essential (primary) hypertension; Z90.13 Acquired absence of bilateral breasts and nipples; Z79.4 Long term (current) use of insulin; I45.10 Unspecified right bundle-branch block; Z85.72 Personal history of non-Hodgkin lymphomas; E87.6 Hypokalemia; B96.29 Other Escherichia coli [E. coli] as the cause of diseases classified elsewhere; E78.5 Hyperlipidemia, unspecified
CPT/HCPCS: 36415; 71045-TC-FY; 80048; 80053; 81003; 81015; 82803; 83605; 85025; 85027; 85610; 85730; 87040; 87070; 87086; 87186; 87205; 87324; 87449; 87899; 93005; 94640; 99283-25; J7030; Q0162

== ENCOUNTER 2020-05-05 16:17 | Emergency (ER) | payer BC ==
[2020-05-05 16:39] VITALS: BP 153/84; PULSE 109; TEMP 98; BMI 34.0
[2020-05-05] MEDS ORDERED: MAGNESIUM HYDROX 2400MG/30ML ORAL SUSPENSION 30 ML CUP PO ONE (16:42)
[2020-05-05] MEDS ORDERED: SENNOSIDES 8.8 MG/5 ML BULK BOTTLE PO ONE (16:46)
[2020-05-05] MEDS ORDERED: MAGNESIUM HYDROX 2400MG/30ML ORAL SUSPENSION 30 ML CUP ONE (16:53)
[2020-05-05] MEDS ORDERED: SENNOSIDES 8.8 MG/5 ML BULK BOTTLE PO SCH (22:00)
== END 2020-05-05 16:59 | disposition home or self-care (01) ==
LOC: FER 16:17
DX: K56.41 Fecal impaction (principal)
CPT/HCPCS: 99284-25

== ENCOUNTER 2022-02-06 10:07 | Emergency (ER) | payer OTHER, BC ==
[2022-02-06 10:42] VITALS: BP 169/81; PULSE 100; RESP 18; TEMP 98.4; BMI 33.5
== END 2022-02-06 17:45 | disposition home or self-care (01) ==
LOC: JER 10:07
DX: M54.89 Other dorsalgia (principal)
CPT/HCPCS: 72128-TC; 93005; 93010; 99284-25